=== PATIENT | female | born 1945 | race Asian ===

== ENCOUNTER 2017-04-07 22:12 | Inpatient (IN) | payer OTHER ==
[~2017-04-07] VITALS: Ht 157.5 cm; Wt 75.3 kg
[2017-04-07 23:46] LABS: BASOPHIL % 0.6 % (0-2); PLATELET COUNT 157 x10^3mcL (130-400)
[2017-04-07 23:55] LABS: RED CELL DISTRIBUTION WIDTH 15.8 % (11.5-14.5)
[2017-04-07 23:56] LABS: CALCIUM 8.6 mg/dL (8.5-10.1); CHLORIDE SERUM 103 mmol/L (98-107); CREATININE SERUM 1.5 mg/dL (0.6-1.0); GLUCOSE SERUM 390 mg/dL (74-106); POTASSIUM SERUM 4.2 mmol/L (3.5-5.1); SODIUM SERUM 136 mmol/L (136-145)
[2017-04-08 00:10] LABS: ALBUMIN 3.4 g/dL (3.4-5.0); ALKALINE PHOSPHATASE 161 U/L (46-116); ALT/SGPT 46 U/L (14-59); AST/SGOT 26 U/L (15-37); BILIRUBIN TOTAL 0.7 mg/dL (0.20-1.00); TOTAL PROTEIN, SERUM 6.9 g/dL (6.4-8.2)
[2017-04-08 00:12] LABS: CK-MB 0.9 ng/mL (0-3.6)
[2017-04-08 01:22] LABS: BASOPHIL % 0.3 % (0-2)
[2017-04-08 01:23] LABS: PLATELET COUNT 117 x10^3mcL (130-400)
[2017-04-08] MEDS ORDERED: ATENOLOL100 MG PO (02:31)
[2017-04-08] MEDS ORDERED: DILTIAZEM HCL180 MG PO (02:31)
[2017-04-08] MEDS ORDERED: LOSARTAN POTAS100 M1 PO (02:31)
[2017-04-08] MEDS ORDERED: PRA40 PO (02:32)
[2017-04-08] MEDS ORDERED: GLIMEPIRIDE4 M1 PO (02:32)
[2017-04-08] MEDS ORDERED: ALLOPURINOL100 MG PO (02:32)
[2017-04-08] MEDS ORDERED: ASPIR 8181 MG PO (02:33)
[2017-04-08] MEDS ORDERED: METFORMIN HCL500 MG PO (02:33)
[2017-04-08 03:56] VITALS: BP 104/61
[2017-04-08 04:14] VITALS: Ht 157.5 cm; Wt 75.3 kg
[2017-04-08 04:27] LABS: MAGNESIUM 1.9 mg/dL (1.8-2.4); PHOSPHOROUS 3.5 mg/dL (2.5-4.9)
[2017-04-08 04:28] LABS: CHOLESTEROL/HDL RATIO 2.5
[2017-04-08 05:25] LABS: T3 TOTAL 1.08 ng/mL
[2017-04-08 05:27] LABS: FREE T4 1.36 ng/dL (0.76-1.46); FREE THYROXINE INDEX 3.9 ug/dL (1.4-4.5); T4(THYROXINE) 10.7 ug/dL (4.7-13.3)
[2017-04-08 07:15] VITALS: BP 121/77
[2017-04-08 11:08] LABS: CALCIUM 8.5 mg/dL (8.5-10.1); CARBON DIOXIDE 24.5 mmol/L (21-32); CHLORIDE SERUM 109 mmol/L (98-107); CREATININE SERUM 0.9 mg/dL (0.6-1.0); GLUCOSE SERUM 180 mg/dL (74-106); SODIUM SERUM 140 mmol/L (136-145)
[2017-04-08 11:12] LABS: BASOPHIL % 0.4 % (0-2); PLATELET COUNT 120 x10^3mcL (130-400); RED CELL DISTRIBUTION WIDTH 21.4 % (11.5-14.5)
[2017-04-08 12:15] VITALS: BP 135/73
[2017-04-08 16:00] VITALS: BP 133/57
[2017-04-08 21:27] VITALS: BP 133/76
[2017-04-08 23:41] LABS: microscopic required? YES; urine erythrocyte 2+ (NEGATIVE)
[2017-04-09 06:18] LABS: CALCIUM 7.7 mg/dL (8.5-10.1); CARBON DIOXIDE 21.4 mmol/L (21-32); CHLORIDE SERUM 117 mmol/L (98-107); CREATININE SERUM 0.8 mg/dL (0.6-1.0); GLUCOSE SERUM 122 mg/dL (74-106); PHOSPHOROUS 2.8 mg/dL (2.5-4.9); POTASSIUM SERUM 3.8 mmol/L (3.5-5.1); SODIUM SERUM 147 mmol/L (136-145)
[2017-04-09 06:48] VITALS: BP 136/61
[2017-04-09 07:12] LABS: BASOPHIL % 0.4 % (0-2)
[2017-04-09 07:41] LABS: PLATELET COUNT 98 x10^3mcL (130-400); RED CELL DISTRIBUTION WIDTH 20.8 % (11.5-14.5)
[2017-04-09 09:25] VITALS: BP 134/69
[2017-04-09 10:14] VITALS: BP 137/74
[2017-04-09 13:42] VITALS: BP 132/67
[2017-04-09 17:13] VITALS: BP 157/81
[2017-04-09 19:35] VITALS: BP 158/82
[2017-04-10 06:03] VITALS: BP 151/77
[2017-04-10 07:53] LABS: BASOPHIL % 0.4 % (0-2)
[2017-04-10 08:04] LABS: CALCIUM 8.3 mg/dL (8.5-10.1); CARBON DIOXIDE 21.4 mmol/L (21-32); CHLORIDE SERUM 110 mmol/L (98-107); CREATININE SERUM 0.9 mg/dL (0.6-1.0); GLUCOSE SERUM 184 mg/dL (74-106); MAGNESIUM 1.8 mg/dL (1.8-2.4); PHOSPHOROUS 2.6 mg/dL (2.5-4.9); POTASSIUM SERUM 3.4 mmol/L (3.5-5.1); SODIUM SERUM 143 mmol/L (136-145)
[2017-04-10 08:11] LABS: PLATELET COUNT 106 x10^3mcL (130-400); RED CELL DISTRIBUTION WIDTH 20.5 % (11.5-14.5)
[2017-04-10 08:15] LABS: rbc morphology (normal/abnorm) ABNORMAL (NORMAL); target cell (codocyte) 1+
[2017-04-10 10:42] VITALS: BP 133/75
[2017-04-10] MEDS ORDERED: FER300 PO (11:22)
[2017-04-10] MEDS ORDERED: VITC PO (11:23)
[2017-04-10] MEDS ORDERED: COLACE100 MG PO (11:23)
[2017-04-10 11:44] VITALS: BP 133/75
== END 2017-04-10 12:10 | disposition home or self-care (01) | DRG 377 ==
LOC: ED 22:12 → MU 04-08 01:32 → DU 04-08 01:32 → IC 04-08 01:32 → DU 04-08 17:54 → IC 04-08 17:56 → DU 04-08 19:28 → MU 04-09 10:29
PROVIDERS: Emergency Medicine; Family Medicine; Internal Medicine Gastroenterology; ADMIT Family Medicine
PROC: 30233N1 Transfusion of Nonautologous Red Blood Cells into Peripheral Vein, Percutaneous Approach (ICD-10-PCS; 2017-04-08)
PROC: 0DB68ZX Excision of Stomach, Via Natural or Artificial Opening Endoscopic, Diagnostic (ICD-10-PCS; 2017-04-08 09:00)
PROC: 0DBE8ZZ Excision of Large Intestine, Via Natural or Artificial Opening Endoscopic (ICD-10-PCS; 2017-04-08 09:00)
PROC: 0W3P8ZZ Control Bleeding in Gastrointestinal Tract, Via Natural or Artificial Opening Endoscopic (ICD-10-PCS; principal; 2017-04-09 08:30)
DX: K57.31 Diverticulosis of large intestine without perforation or abscess with bleeding (principal); N17.0 Acute kidney failure with tubular necrosis; N39.0 Urinary tract infection, site not specified; D68.69 Other thrombophilia; D62 Acute posthemorrhagic anemia; E11.65 Type 2 diabetes mellitus with hyperglycemia; E11.51 Type 2 diabetes mellitus with diabetic peripheral angiopathy without gangrene; E11.59 Type 2 diabetes mellitus with other circulatory complications; I10 Essential (primary) hypertension; Z66 Do not resuscitate; Z79.82 Long term (current) use of aspirin; Z79.84 Long term (current) use of oral hypoglycemic drugs; Z85.05 Personal history of malignant neoplasm of liver; Z92.21 Personal history of antineoplastic chemotherapy; Z85.030 Personal history of malignant carcinoid tumor of large intestine; Z98.0 Intestinal bypass and anastomosis status
CPT/HCPCS: 36600; 43235; 45378; 82962; 83880; 84439; J0171; J0696; J1200; J1610; J1815; J2250; J2310; J2765; J2916; J3010; J3490; J7030; J7040; J7050; P9016; Q0092; Q9966; Q9967